=== PATIENT | male | born 1970 | race African-American/Black ===

== ENCOUNTER 2017-01-14 22:39 | Emergency (ER) | payer MEDICAID ==
[~2017-01-14] VITALS: Ht 188 cm; Wt 111.5 kg
[2017-01-15 02:33] VITALS: BP 115/78
== END 2017-01-15 02:36 | disposition home or self-care (01) ==
LOC: EMS 22:42
DX: J06.9 Acute upper respiratory infection, unspecified (principal); R51 Headache
CPT/HCPCS: 70450; 71020; 99284

== ENCOUNTER 2018-04-09 20:49 | Emergency (ER) | payer MEDICAID ==
[~2018-04-09] VITALS: Ht 185.4 cm; Wt 113.6 kg
[2018-04-09] MEDS ORDERED: KETOROLAC TROMETHAMINE 60 MG/2 ML VIAL IM ONE (22:15)
[2018-04-09] MEDS ORDERED: METHOCARBAMOL 500 MG TABLET PO ONE (22:15)
[2018-04-09 22:51] VITALS: BP 139/84
== END 2018-04-09 23:02 | disposition home or self-care (01) ==
LOC: EMS 20:50
DX: S29.012A Strain of muscle and tendon of back wall of thorax, initial encounter (principal); X58.XXXA Exposure to other specified factors, initial encounter; Y93.89 Activity, other specified; Y92.89 Other specified places as the place of occurrence of the external cause; Y99.8 Other external cause status
CPT/HCPCS: 96372; 99283; J1885

== ENCOUNTER 2018-06-02 22:42 | Emergency (ER) | payer MEDICAID ==
[~2018-06-02] VITALS: Ht 188 cm; Wt 112.7 kg
[2018-06-03 00:20] LABS: APPEARANCE,URINE CLEAR (CLEAR); BILIRUBIN,URINE NEGATIVE (NEGATIVE); GLUCOSE, URINE (UA) NEGATIVE (NEGATIVE); KETONES,URINE TRACE mg/dL (NEGATIVE); LEUKOCYTE ESTERASE ,URINE SMALL (NEGATIVE); NITRATE,URINE NEGATIVE (NEGATIVE); OCCULT BLOOD,URINE NEGATIVE (NEGATIVE); PROTEIN,URINE NEGATIVE (NEGATIVE); UROBILINOGEN,URINE 0.2 mg/dL (<=1.0)
[2018-06-03 00:29] LABS: RBC,URINE 0-2 /HPF (0-2)
[2018-06-03 00:30] LABS: BACTERIA,URINE Rare /HPF (None Seen); SQUAMOUS EPITHELIAL CELL,UR Rare /LPF (None Seen); WBC,URINE 26-50 /HPF (0-5)
[2018-06-03] MEDS ORDERED: CefTRIAXone SODIUM 1 GM/VIAL IM ONE (00:45)
[2018-06-03] MEDS ORDERED: LIDOCAINE/PF 1% 2 ML VIAL IM ONE (00:45)
[2018-06-03 00:55] VITALS: BP 133/79
== END 2018-06-03 01:08 | disposition home or self-care (01) ==
LOC: EMS 22:43
DX: N45.1 Epididymitis (principal)
CPT/HCPCS: 81001; 87086; 96372; 99284; J0696; J3490

== ENCOUNTER 2019-10-08 18:33 | Emergency (ER) | payer BC, MEDICAID ==
[~2019-10-08] VITALS: Ht 185.4 cm; Wt 109.1 kg
[2019-10-08] MEDS ORDERED: ALBUTEROL SULFATE HFA 90 MCG/PUFF 8 GM INHALER IH ONE (20:30)
[2019-10-08] MEDS ORDERED: IPRATROPIUM BROMIDE 0.5 MG/2.5 ML NEB SOLUTION NEB ONE (20:30)
[2019-10-08] MEDS ORDERED: ALBUTEROL SULFATE 2.5 MG/0.5 ML NEB SOLUTION NEB ONE (20:30)
[2019-10-08 22:12] VITALS: BP 137/78
== END 2019-10-08 22:15 | disposition home or self-care (01) ==
LOC: EMS 18:34
DX: G93.3 Postviral and related fatigue syndromes (principal); R05 Cough
CPT/HCPCS: 87430; 94060; 94640; J3535

== ENCOUNTER 2020-09-04 15:05 | Emergency (ER) | payer BC, OTHER ==
[~2020-09-04] VITALS: Ht 185.4 cm; Wt 112.7 kg
[2020-09-04 16:58] VITALS: BP 167/92
== END 2020-09-04 17:57 | disposition home or self-care (01) ==
LOC: EMS 15:07
DX: S93.402A Sprain of unspecified ligament of left ankle, initial encounter (principal); X50.9XXA Other and unspecified overexertion or strenuous movements or postures, initial encounter; Y93.89 Activity, other specified; Y92.89 Other specified places as the place of occurrence of the external cause; Y99.8 Other external cause status

== ENCOUNTER 2021-09-13 21:47 | Emergency (ER) | payer OTHER ==
[~2021-09-13] VITALS: Ht 188 cm; Wt 136.4 kg
[2021-09-13 21:49] VITALS: BP 192/98
[2021-09-13] MEDS ORDERED: ACETAMINOPHEN 325 MG TABLET PO ONE (22:15)
[2021-09-13 23:17] LABS: COVID AG,FIA SOURCE NASOPHARYNGEAL
[2021-09-13 23:40] LABS: INFLUENZA TYPE A NEGATIVE FOR TYPE A (NEGATIVE); INFLUENZA TYPE B NEGATIVE FOR TYPE B (NEGATIVE)
== END 2021-09-14 | disposition home or self-care (01) ==
LOC: EMS 21:48
DX: U07.1 COVID-19 (principal)
CPT/HCPCS: 87426; 87804; 99283; U0003

== ENCOUNTER 2021-11-03 13:43 | Emergency (ER) | payer OTHER ==
[~2021-11-03] VITALS: Ht 185.4 cm; Wt 114.5 kg
[2021-11-03] MEDS ORDERED: LIDOCAINE 5% TRANSDERMAL PATCH TD ONE (14:45)
[2021-11-03 14:56] LABS: BASOPHILS % (AUTO) 0.6 % (0.0-2.0); EOSINOPHILS % (AUTO) 4.3 % (1.0-6.0); HEMATOCRIT 41.4 % (41-53); LYMPHOCYTES # (AUTO) 1.8 K/uL (1.0-4.8); MEAN CORPUSCULAR HEMOGLOBIN 26.8 pg (26.0-34.0); MEAN CORPUSCULAR HGB CONC 33.9 G/dL (31.0-37.0); MEAN CORPUSCULAR VOLUME 79 fL (80-100); MONOCYTES # (AUTO) 0.6 K/uL (0.1-1.0); MONOCYTES % (AUTO) 8.6 % (2.0-9.0); NEUTROPHILS # (AUTO) 4.1 K/uL (1.8-7.7); NEUTROPHILS % (AUTO) 60.5 % (40.0-70.0); PLATELET COUNT (AUTO) 283 K/uL (150-450); RED BLOOD CELL COUNT(AUTO) 5.22 MIL/uL (4.50-5.90); RED CELL DISTRIBUTION WIDTH 14.1 % (11.5-14.5)
[2021-11-03 15:25] LABS: B-TYPE NATRIURETIC PEPTIDE 7 pg/mL (0-100)
[2021-11-03 15:49] VITALS: BP 157/99
[2021-11-03 16:39] LABS: ANION GAP 6 mmol/L (8-16); CALCIUM, TOTAL 9.1 mg/dL (8.8-10.5); CARBON DIOXIDE 31 mmol/L (22-29); CHLORIDE 101 mmol/L (98-107); CREATININE 0.97 mg/dL (0.60-1.30); GLOMERULAR FILTR. RATE CALC > 60 mL/min (>60); GLUCOSE,RANDOM 85 mg/dL (70-110); SODIUM SERUM 138 mmol/L (136-145); UREA NITROGEN, BLOOD 16 mg/dL (7-18)
[2021-11-03 16:51] LABS: ALANINE AMINOTRANSFERASE 57 U/L (12-78); ALBUMIN 3.9 g/dL (3.4-5.0); ALKALINE PHOSPHATASE 86 U/L (46-116); ASPARTATE AMINOTRANSFERASE 38 U/L (15-37); BILIRUBIN,TOTAL 0.4 mg/dL (0.1-1.0); TOTAL PROTEIN, SERUM 8.4 g/dL (6.4-8.2)
== END 2021-11-03 17:23 | disposition home or self-care (01) ==
LOC: EMS 13:43
DX: R07.89 Other chest pain (principal)
CPT/HCPCS: 71045; 80053; 83880; 84484; 85025; 93005; 99285; 36415-L1; 36415-TC

== ENCOUNTER 2022-09-16 22:42 | Emergency (ER) | payer MEDICAID, OTHER ==
[~2022-09-16] VITALS: Ht 185.4 cm; Wt 136.4 kg
[2022-09-16 22:52] LABS: COVID AG,FIA SOURCE NASAL SWAB
[2022-09-16 23:16] LABS: INFLUENZA TYPE A NEGATIVE FOR TYPE A (NEGATIVE); INFLUENZA TYPE B NEGATIVE FOR TYPE B (NEGATIVE)
[2022-09-16] MEDS ORDERED: IBUP-1554 PO (23:52)
[2022-09-16] MEDS ORDERED: ACET-66 PO (23:52)
[2022-09-16] MEDS ORDERED: GUAIFDM PO (23:52)
[2022-09-17] MEDS ORDERED: GuaiFENesin/D-METHORPHAN [SUGAR-FREE] 200-20MG/10 ML SYRUP UDCUP PO ONE
[2022-09-17] MEDS ORDERED: IBUPROFEN 600 MG TABLET PO ONE
[2022-09-17] MEDS ORDERED: ACETAMINOPHEN 500 MG TABLET PO ONE
[2022-09-17 00:08] VITALS: BP 149/100
== END 2022-09-17 00:11 | disposition home or self-care (01) ==
LOC: EMS 22:49
DX: J06.9 Acute upper respiratory infection, unspecified (principal); Z20.822 Contact with and (suspected) exposure to COVID-19
CPT/HCPCS: 87804; 99284; Z7502; Z7610

== ENCOUNTER 2023-08-12 19:57 | Emergency (ER) | payer MEDICAID, OTHER ==
[~2023-08-12] VITALS: Ht 185.4 cm; Wt 109.0 kg
[~2023-08-12 19:57] MED LIST: ACET-66 PO; GUAIFDM PO; IBUP-1554 PO
[2023-08-12 20:12] VITALS: BP 138/79; PULSE 83; RESP 20; TEMP 99
[2023-08-12 20:31] LABS: COVID AG,FIA SOURCE NASAL SWAB
[2023-08-12 20:47] LABS: RAPID GROUP A STREP NEGATIVE (NEGATIVE)
[2023-08-12 20:57] LABS: INFLUENZA TYPE A NEGATIVE FOR TYPE A (NEGATIVE); INFLUENZA TYPE B NEGATIVE FOR TYPE B (NEGATIVE); SARS-COV2 (COVID) ANTIGEN,FIA Negative (Negative)
[2023-08-12] MEDS ORDERED: ACET-2080 PO (21:57)
[2023-08-12] MEDS ORDERED: GUAIFDM PO (21:57)
== END 2023-08-12 22:35 | disposition home or self-care (01) ==
LOC: EMS 20:04
DX: J06.9 Acute upper respiratory infection, unspecified (principal); I10 Essential (primary) hypertension; Z20.822 Contact with and (suspected) exposure to COVID-19
CPT/HCPCS: 87430; 87804; 99283